=== PATIENT | male | born 1995 | race Caucasian/White ===

== ENCOUNTER 2017-09-06 15:37 | Emergency (ER) | payer SELFPAY ==
[~2017-09-06] VITALS: Ht 177.8 cm; Wt 68.0 kg
[2017-09-06 15:47] VITALS: BP 139/72; PULSE 82; RESP 16; TEMP 98.9; O2SAT 99
--- NOTE | 2017-09-06 16:25 | RADRPT ---
EXAM DATE/TIME: 09/06/2017 16:08 [facility] COMPARISON: No previous studies available for comparison. INDICATIONS : Pain from fall through ceiling and shortness of breath. MEDICAL HISTORY : Damaged intercostal muscles. SURGICAL HISTORY : None. ENCOUNTER: Initial ACUITY: 1 day PAIN SCORE: 10/10 LOCATION: Bilateral chest FINDINGS: PA and lateral views of the chest demonstrate the lungs to be symmetrically aerated without evidence of mass, infiltrate or effusion. The cardiomediastinal contours are unremarkable. Osseous structure s are intact. CONCLUSION: No acute disease. David Bangura MD on September 06, 2017 at 16:22 Board Certified Radiologist. This report was verified electronically.
== END 2017-09-06 21:32 | disposition left against medical advice (07) ==
LOC: NED 15:37
DX: R06.02 Shortness of breath (principal); R42 Dizziness and giddiness; S41.112A Laceration without foreign body of left upper arm, initial encounter; S41.111A Laceration without foreign body of right upper arm, initial encounter; W19.XXXA Unspecified fall, initial encounter; Z53.21 Procedure and treatment not carried out due to patient leaving prior to being seen by health care provider
CPT/HCPCS: 71046; 99281

== ENCOUNTER 2017-10-02 14:49 | Emergency (ER) | payer SELFPAY ==
[~2017-10-02] VITALS: Ht 177.8 cm; Wt 72.0 kg
[2017-10-02 14:54] VITALS: BP 153/75; PULSE 90; RESP 17; TEMP 98.3; O2SAT 98
[2017-10-02] MEDS ORDERED: KETOROLAC TROMETHAMINE 60 MG/2 ML (IM) VIAL IM ONE (16:00)
[2017-10-02] MEDS ORDERED: ORPHENADRINE INJ 60 MG/2 ML AMP IM ONE (16:00)
--- NOTE | 2017-10-02 16:04 | PD ---
HPI Chief Complaint: Fall Time Seen by Provider: 15:53 Travel History International Travel<30 days: No Contact w/Intl Traveler<30days: No Traveled to known affect area: No History of Present Illness HPI Patient states that while he was placing insufflation apparently he went through the ceiling and fell down and landed on his chest wall. Since then around September 06 or so he has had this chest wall pain mostly to the pectoralis trapezius area supraspinatus area... Patient came on September 06 which is the date it happened however patient LWBS.... Returns today because he continues to have the same complaint [facility] Social History Tobacco Use: No Allergies-Medications (Allergen,Severity, Reaction): Coded Allergies: No Known Allergies (Unverified , 09/06/17) Reported Meds & Prescriptions Reported Meds & Active Scripts Active Ultram (Tramadol HCl) 50 Mg Tab 50 Mg PO Q8H PRN Naproxen EC (Naproxen) 375 Mg Tabdr 375 Mg PO BID Baclofen 20 Mg Tab 20 Mg PO TID 5 Days Review of Systems General / Constitutional: No: Fever Eyes: No: Visual changes HENT: No: Headaches Cardiovascular: No: Chest Pain or Discomfort Respiratory: No: Shortness of Breath Gastrointestinal: No: Abdominal Pain Genitourinary: No: Dysuria Musculoskeletal: Positive: Limited ROM, Pain Skin: No Rash Neurologic: No: Weakness Psychiatric: No: Depression Endocrine: No: Polydipsia Hematologic/Lymphatic: No: Easy Bruising Physical Exam Narrative GENERAL: SKIN: Warm and dry. HEAD: Atraumatic. Normocephalic. EYES: Pupils equal and round. No scleral icterus. No injection or drainage. ENT: No nasal bleeding or discharge. Mucous membranes pink and moist. NECK: Trachea midline. No JVD. CARDIOVASCULAR: Regular rate and rhythm. RESPIRATORY: No accessory muscle use. Clear to auscultation. Breath sounds equal bilaterally. GASTROINTESTINAL: Abdomen soft, non-tender, nondistended MUSCULOSKELETAL: Extremities without clubbing, cyanosis, or edema. No obvious deformities. NEUROLOGICAL: Awake and alert. No obvious cranial nerve deficits. Motor grossly within normal limits. Five out of 5 muscle strength in the arms and legs. Normal speech. PSYCHIATRIC: Appropriate mood and affect; insight and judgment normal. Data Data Last Documented VS Vital Signs Date Time Temp Pulse Resp B/P (MAP) Pulse Ox O2 Delivery O2 Flow Rate FiO2 10/02/17 14:54 98.3 90 17 153/75 (101) [address] Thorax/ Chest Wo Iv Contras (10/02/17 15:53) Ketorolac Inj (Toradol Inj) (10/02/17 16:00) Orphenadrine Inj (Norflex Inj) (10/02/17 16:00) MDM Medical Decision Making Medical Screen Exam Complete: Yes Emergency Medical Condition: Yes Medical Record Reviewed: Yes Differential Diagnosis muscle strain versus tear versus fracture versus dislocation Narrative Course Patient's CT did not show any major fracture dislocation or full muscle tear noted. Diagnosis Primary Impression: strain muscle Patient Instructions: General Instructions, Muscle Strain (ED) Scripts Tramadol (Ultram) 50 Mg Tab 50 MG PO Q8H Y for PAIN, #12 TAB 0 Refills Prov: Chidi Luciano MD 10/02/[address] (Naproxen EC) 375 Mg Tabdr 375 MG PO BID, #15 TAB 0 Refills Prov: Chidi Luciano MD 10/02/17 Baclofen (Baclofen) 20 Mg Tab 20 MG PO TID for Muscle Spasm for 5 Days, #15 TAB 0 Refills Prov: Chidi Luciano MD 10/02/17 Disposition: 01 DISCHARGE HOME Condition: Stable Chidi Luciano MD Oct 02, 2017 16:04
[2017-10-02] MEDS ORDERED: NAPR375T4 PO (16:49)
[2017-10-02] MEDS ORDERED: BACL20TA PO (16:49)
[2017-10-02] MEDS ORDERED: TRAM50 PO (16:49)
--- NOTE | 2017-10-02 16:54 | RADRPT ---
EXAM DATE/TIME: 10/02/2017 16:38 [facility] COMPARISON: No previous studies available for comparison. INDICATIONS : Patient fell through ceiling while placing insulation about two weeks ago and still has continous arielle st pain. RADIATION DOSE: 9.82 CTDIvol (mGy) MEDICAL HISTORY : None SURGICAL HISTORY : None. ENCOUNTER: Initial ACUITY: 1 week PAIN SCALE: 7/10 LOCATION: Bilateral chest TECHNIQUE: Volumetric scanning of the chest was performed. Using automated exposure control and adjustment of t he mA and/or kV according to patient size, radiation dose was kept as low as reasonably achievable to obtain optimal diagnostic quality images. DICOM format image data is available electronically for r eview and comparison. Follow-up recommendations for detected pulmonary nodules are based at a minimum on nodule size and pa tient risk factors according to Fleischner Society Guidelines. FINDINGS: LUNGS: There is a miniscule nodule in the posterior lateral left lower lobe. Lungs otherwise clear. No evide nce of contusion. PLEURAE: No evidence of hemothorax or pneumothorax. MEDIASTINUM: No evidence of mediastinal hematoma or mass. AXILLAE: Within normal limits. No lymphadenopathy. MUSCULOSKELETAL: Within normal limits for patient age. MISCELLANEOUS: The visualized upper abdominal organs demonstrate no acute abnormality. CONCLUSION: No acute intrathoracic injury Jeremy Crowley MD on October 02, 2017 at 16:49 Board Certified Radiologist. This report was verified electronically.
== END 2017-10-02 17:34 | disposition home or self-care (01) ==
LOC: NEPD 14:49
DX: T14.8XXA Other injury of unspecified body region, initial encounter (principal); W13.8XXA Fall from, out of or through other building or structure, initial encounter; Y93.H3 Activity, building and construction
CPT/HCPCS: 71250; 96372; 99283; J1885; J2360